=== PATIENT | male | born 1985 | race Caucasian/White ===

== ENCOUNTER → 2018-12-14 15:41 | Outpatient (CLI) | payer MEDICARE, MEDICAID, SELFPAY ==
[2018-12-14 17:33] LABS: Alanine Aminotransferase 51 IU/L (21-72); Albumin 4.6 g/dL (3.5-5.0); Albumin Globulin Ratio 1.8 (1.0-2.8); Alkaline Phosphatase 91 U/L (38-126); Aspartate Aminotransferase 43 IU/L (17-59); BUN Creatinine Ratio 16.7 (6-22); Bilirubin Total 0.7 mg/dL (0.2-1.3); Blood Urea Nitrogen 15 mg/dL (9-20); Calcium 9.9 mg/dL (8.4-10.2); Carbon Dioxide 30 mmol/L (22-32); Chloride 103 mmol/L (98-107); Cholesterol 182 mg/dL (140-199); Estimated Glomerular Filt Rate > 60.0 mL/min (>60); Globulin 2.6 g/dL (1.7-4.1); Glucose 99 mg/dL (70-100); HDL Cholesterol 45 mg/dL (40-60); HEMOLYSIS < 15 (0-50); LDL Cholesterol Calculated 116 mg/dL (<100); Potassium 4.5 mmol/L (3.4-5.1); Sodium 141 mmol/L (137-145); Total Protein 7.2 g/dL (6.3-8.2); Triglycerides 106 mg/dL (35-150)
[2018-12-14 17:47] LABS: Vitamin D 25 Hydroxy (D3) 14.8 ng/mL (30.0-100.0)
== END ==
PROVIDERS: PCP Student in an Organized Health Care Education/Training Program; Visit Provider Student in an Organized Health Care Education/Training Program
DX: Z13.220 Encounter for screening for lipoid disorders (principal); Z79.899 Other long term (current) drug therapy; E55.9 Vitamin D deficiency, unspecified
CPT/HCPCS: 36415; 80053; 80061; 82306

== ENCOUNTER 2021-08-18 06:54 | Emergency (ER) | payer MEDICARE, MEDICAID, SELFPAY ==
[2021-08-18 07:04] VITALS: BP 148/88; PULSE 113; RESP 17; TEMP 37.2; O2SAT 97; BMI 22.8
[2021-08-18 07:26] LABS: Bacteria Urine None Seen; Culture Indicated Urine Cult Not Indicated; Mucus Urine 1+ (Negative); RBC Urine None Seen (0-5/HPF); Squamous Epithelial Cell Urine 0-1 /HPF (0-5/HPF); WBC Urine 0-1/HPF (0-5/HPF)
--- NOTE | 2021-08-18 07:39 | ED_ITS ---
HPI - Male Genitourinary General Chief complaint: Urogenital-Male Stated complaint: Back pain Time Seen by Provider: 08/18/21 07:39 Source: patient and family Mode of arrival: Ambulatory Limitations: no limitations History of Present Illness HPI Narrative: This is a 36-year-old male with history of autism and major depressive disorder. Patient has had right lower back pain which she describes as being quite unco mfortable, does not radiate down his leg, does not radiate to the anterior. Patient has had some muscle spasm movement pressing on the area seems to make it worse. He denies any numbness or tingling in his extremities. No fevers or chills. No chest pain or shortness of breath. No nausea or vomiting. No bowel or bladder incontinence. Patient denies any saddle anesthesia. No weakness in his extremities. Patient has tried Aleve or Excedrin without much change. His last dose was yesterday. He denies any prior surgeries besides root canal. No known drug allergies. Occasional cigar, alcohol, no illicit. His primary care is Dr. Arroyo. Related Data Home Medications Medication Instructions Recorded Confirmed clonazepam 0.5 mg tablet 0.5 mg PO DAILY 12/14/18 12/14/18 mirtazapine 45 mg tablet 90 mg PO DAILY tab 12/14/18 12/14/18 risperidone 3 mg tablet 3 mg PO DAILY 12/14/18 12/14/18 Previous Rx's Medication Instructions Recorded cyclobenzaprine 10 mg tablet 10 mg PO Q8H PRN #10 tab 08/18/21 Allergies Allergy/AdvReac Type Severity Reaction Status Date / Time sertraline AdvReac Mild severe Verified 08/18/21 08:01 stomach cramping Review of Systems Review of Systems ROS Unobtainable: All systems reviewed & are unremarkable except as noted in HPI and below Patient History Medical History Allergies (~2009) Broken arm (~1996) History of chicken pox History of head injury (~1996) Hypersensitivity (~1996) Undescended testes (~1989) Surgical History Hx of tonsillectomy (~1986) Family History Father Diabetes mellitus Hypertension Mother No problems noted. Grandfather Diabetes mellitus Hypertension Heart abnormality Grandmother Hypertension Heart abnormality Grandfather Diabetes mellitus Grandmother Cancer Social History marital status: unmarried,single household members: family pets and animals: No education level: high school occupational status: employed [employer]oxy: [employer] travel history: other leisure activities: reading and other other: Travel, Watching Television seatbelt use: always helmet use: Yes working smoke detector in home: Yes carbon monox detector in home: Yes firearms in home: No do you feel safe at home: Yes Smoking Status: Never smoker alcohol intake: current substance use type: does not use during the past year weight has: remained stable well-balanced diet: daily or most days daily servings fruits/ve-1 caffeine: Yes (2+ drinks per day, 2 + drinks of soda/pop per day) eating out: 1-3 times/week additional social history: Travel history: [facility], [place], [place], [place]. DISABILITIES: Vision deficiencies, Autism/Brain injury. Smoking Status: Never smoker alcohol intake frequency: 0-2 drinks per day Substance Use Type: does not use Exam Narrative Exam Narrative: GENERAL: Alert and oriented x three, male in mild distress. HEENT: Head normocephalic, atraumatic, EOMI, pupils reactive, face symmetric, moist mucous membranes NECK: Supple, full range of motion CARDIOVASCULAR: Regular rate and rhythm without murmurs, rubs or gallops. RESPIRATORY: Breath sounds equal bilaterally, no wheezes rales or rhonchi. ABDOMEN: Soft, nontender. Normoactive bowel sounds all 4 quadrants. No guarding or rebound, rigidity, no mass : No CVA tenderness BACK: No cervical, thoracic or lumbar vertebral point tenderness. Patient has normal range of motion. Patient's gait is normal. Muscle strength is 5/5 in lower extremities, DTRs are 2/4 and lower extremities. Sensation is intact in the lower extremities. EXTREMITIES: Normal range of motion, no clubbing or edema. Neurovascularly intact NEUROLOGICAL: Cranial nerves II through XII grossly intact. Moving all extremities SKIN: Warm, dry, no petechiae, no rashes or lesions. Initial Vital Signs Initial Vital Signs: Vital Signs Temperature 98.9 F 08/18/21 07:04 Pulse Rate 113 H 08/18/21 07:04 Respiratory Rate 17 08/18/21 07:04 Blood Pressure 148/88 H 08/18/21 07:04 Pulse Oximetry 97 08/18/21 07:04 Course Orders Ordered: ED Orders 08/18/21 07:05 Urine Culture Stat Urine Microscopic Stat Discontinued Medications Ketorolac Tromethamine (Ketorolac 30 Mg/Ml Vial) 30 mg IM NOW ONE Stop: 08/18/21 07:59 Last Admin: 08/18/21 08:10 Dose: 30 mg Documented by: Vital Signs Vital signs: Vital Signs - 8 hr 08/18/21 07:04 Temperature 98.9 F Pulse Rate 113 H Respiratory Rate 17 Blood Pressure 148/88 H Pulse Oximetry 97 MDM - Male Genitourinary Lab Data Labs: Lab Results 08/18/21 Range/Units 07:05 Urine RBC None seen (0-5/HPF) Urine WBC 0-1/hpf (0-5/HPF) Ur Squamous Epith Cells 0-1 /hpf (0-5/HPF) Urine Bacteria None seen (None) Urine Mucus 1+ H (Negative) Ur Culture Indicated? Cult not indicated Urine Dip Bedside Urine Glucose 500 mg/dl Bedside Urine Bilirubin - Negative Bedside Urine Ketone - Negative Urine Specific [place] 1.030 Bedside Urine Occult Blood - Negative Bedside Urine pH 6 Bedside Urine Protein +/- 15 Bedside Urine Urobilinogen - Negative Bedside Urine Nitrite - Negative Bedside Urine Leukocytes - Negative Esterase [facility] Narrative Medical decision making narrative: This is a 36-year-old male with complaint of right back pain. Patient has symptoms more consistent with musculoskeletal changes. Exam is benign and reassuring. Patient's urine does not show any signs of blood or kidney stone or infection. Patient does not have other symptoms that make me suspect an acute intra-abdominal process. Plan for NSAIDs/Tylenol, as needed muscle relaxer and follow up with primary care with return precautions discussed with patient and mother at bedside. Discharge Plan Departure Patient Disposition: Home Clinical Impression: Right-sided back pain Instructions: DI for Low Back Pain Activity Restrictions/Additional Instructions: Follow-up up with your physician if your symptoms are not improving in the next week. You may take ibuprofen up to 600 mg every 6 hours needed for pain. You may also take Tylenol up to a 1000 mg every 6 hours as needed. You may take Flexeril 1 tablet every 8 hours as needed for muscle spasm. This medication can make some individual sleepy. Prescription sent to [facility] in [place] Please return for rapidly worsening symptoms, new weakness, numbness, loss of bowel or bladder control, inability ambulate or walk new worsening pain or other new or concerning symptoms. Prescriptions: New cyclobenzaprine 10 mg tablet 10 mg PO Q8H PRN (Reason: muscle spasm) Qty: 10 0RF No Action mirtazapine 45 mg tablet 90 mg PO DAILY 0RF risperidone 3 mg tablet 3 mg PO DAILY 0RF clonazepam 0.5 mg tablet 0.5 mg PO DAILY 0RF Referrals: Bruno Arroyo MD [Primary Care Provider] -
[2021-08-18] MEDS: KETOROLAC 30 MG/ML VIAL IM (08:10)
== END 2021-08-18 08:27 | disposition home or self-care (01) ==
PROVIDERS: Emergency Medicine; Emergency Provider Emergency Medicine; PCP Student in an Organized Health Care Education/Training Program
DX: M54.50 Low back pain, unspecified (principal)
CPT/HCPCS: 81003; 81015; 87086; 96372; 99283; J1885

== ENCOUNTER → 2022-04-21 13:21 | Outpatient (CLI) | payer MEDICARE, MEDICAID, SELFPAY ==
[2022-04-21 13:49] LABS: Add Manual Diff / Slide Review NO; Basophils Absolute Auto 0 /uL (0-100); Basophils Percent Auto 0.2 % (0-2); Eosinophils Absolute Auto 200 /uL (0-450); Eosinophils Percent Auto 4.6 % (2-4); Hematocrit 42.9 % (41-53); Hemoglobin 14.8 g/dL (13.5-17.5); Lymphocytes Absolute Auto 1600 /uL (1100-4500); Lymphocytes Percent Auto 32.9 % (25-40); Mean Corpuscular HGB Conc 34.6 % (30-36); Monocytes Absolute Auto 300 /uL (0-900); Monocytes Percent Auto 6.6 % (3-14); Neutrophils Absolute Auto 2800 /uL (1500-7000); Neutrophils Percent Auto 55.7 % (50-75); Platelet Count 217 X10^3/uL (150-400); Red Cell Distribution Width 13.1 % (11.6-14.8)
[2022-04-21 13:56] LABS: Hemoglobin A1C% w Est Avg Glu 5.5 % (4.0-6.0)
[2022-04-21 14:05] LABS: Alanine Aminotransferase 49 IU/L (<50); Albumin 4.7 g/dL (3.5-5.0); Albumin Globulin Ratio 1.7 (1.0-2.8); Alkaline Phosphatase 75 U/L (38-126); Aspartate Aminotransferase 35 IU/L (17-59); BUN Creatinine Ratio 15.1 (6-22); Bilirubin Total 1.1 mg/dL (0.2-1.3); Blood Urea Nitrogen 14 mg/dL (9-20); Calcium 9.6 mg/dL (8.4-10.2); Carbon Dioxide 32 mmol/L (22-32); Chloride 99 mmol/L (98-107); Cholesterol 197 mg/dL (140-199); Estimated Glomerular Filt Rate > 60 mL/min (>60); Globulin 2.8 g/dL (1.7-4.1); Glucose 105 mg/dL (70-100); HDL Cholesterol 42 mg/dL (40-60); HEMOLYSIS < 15 (0-50); LDL Cholesterol Calculated 118 mg/dL (<100); Potassium 3.7 mmol/L (3.4-5.1); Sodium 141 mmol/L (137-145); Total Protein 7.5 g/dL (6.3-8.2); Triglycerides 185 mg/dL (35-150)
== END ==
PROVIDERS: PCP Family Medicine; Referring Provider Family Medicine; Visit Provider Family Medicine
DX: F84.0 Autistic disorder (principal); Z79.899 Other long term (current) drug therapy; H61.20 Impacted cerumen, unspecified ear; R03.0 Elevated blood-pressure reading, without diagnosis of hypertension; R42 Dizziness and giddiness; Z13.1 Encounter for screening for diabetes mellitus; Z13.220 Encounter for screening for lipoid disorders
CPT/HCPCS: 36415; 80053; 80061; 83036; 85025

== ENCOUNTER 2023-10-12 17:20 | Emergency (ER) | payer MEDICARE, MEDICAID, SELFPAY ==
[2023-10-12] VITALS (11 sets, daily range): BP systolic 113–136; BP diastolic 76–89; PULSE 73–90; RESP 17–20; TEMP 36.9; O2SAT 96–98; BMI 23.5
--- NOTE | 2023-10-12 23:38 | ED_ITS ---
HPI - Neuro Symptoms/Deficit General Chief Complaint: Neuro Symptoms/Deficit Stated Complaint: facial swelling and numbness including eye Time Seen by Provider: 10/12/23 23:14 Source: patient Mode of arrival: Ambulatory History of Present Illness HPI Narrative: 38-year-old with history of autism, noted to have tingling sensation right face since yesterday, this morning a swelling sensation, and drool from the right side of his mouth, also not blinking as well the right eye. No eye injury or redness. No history of previous strokes, no history of previous Willingham's palsy. Here with mother for evaluation. No injury or trauma. No weakness or numbness to arms or legs, nor to the left leonid-face. No visual field defects, no diplopia, no trouble swallowing. No change in voice. Feels like it is hard to blink with his right eye, but able to close his right eye, no right eye redness or discharge. No history of stroke or clotting problems, no symptoms like this before. On Anticoagulants: No Related Data Home Medications Medication Instructions Recorded Confirmed clonazepam 0.5 mg tablet 0.5 mg PO DAILY 12/14/18 04/21/22 mirtazapine 45 mg tablet 90 mg PO DAILY 12/14/18 04/21/22 risperidone 3 mg tablet 3 mg PO DAILY 12/14/18 04/21/22 Previous Rx's Medication Instructions Recorded valacyclovir 1 gram tablet 1,000 mg PO TID 10 days #30 tabs 10/12/23 (Valtrex) prednisone 20 mg tablet 60 mg (3 x 20 mg) PO DAILY 7 days 10/13/23 #21 tabs Allergies Allergy/AdvReac Type Severity Reaction Status Date / Time sertraline AdvReac Mild severe Verified 04/21/22 12:53 stomach cramping Review of Systems Review of Systems Narrative: per HPI Hematologic/Lymphatic On Anticoagulants: No Patient History Medical History (Updated 10/13/23 @ 00:01 by Arthur Biggs MD) Double vision Chronic back pain Anxiety Joint pain Skin rash (~2021) Undescended testes (~1989) Broken arm (~1996) Hypersensitivity (~1996) Allergies (~2009) History of chicken pox History of head injury (~1996) Surgical History (Updated 05/05/22 @ 19:35 by Taty Torres) Anesthesia Hx of tonsillectomy (~1986) Family History (Updated 05/05/22 @ 19:38 by Taty Torres) Father Diabetes mellitus Hypertension Mother No problems noted. Grandfather Diabetes mellitus Hypertension Heart abnormality Grandmother Hypertension Heart abnormality Grandfather Diabetes mellitus Grandmother Cancer Hypertension Social History marital status: unmarried,single household members: family pets and animals: No education level: high school occupational status: employed [employer]: [employer] travel history: other leisure activities: reading and other other: Travel, Watching Television seatbelt use: always helmet use: Yes working smoke detector in home: Yes carbon monox detector in home: Yes firearms in home: No do you feel safe at home: Yes Smoking Status: Never smoker alcohol intake: current substance use type: does not use during the past year weight has: remained stable well-balanced diet: daily or most days daily servings fruits/ve-1 caffeine: Yes (2+ drinks per day, 2 + drinks of soda/pop per day) eating out: 1-3 times/week additional social history: Travel history: [facility], [place], [place], [place]. DISABILITIES: Vision deficiencies, Autism/Brain injury. Smoking Status: Never smoker alcohol intake frequency: 0-2 drinks per day Substance Use Type: does not use Exam Narrative Exam Narrative: GENERAL: Well-developed patient, in mild distress. HEAD: Atraumatic. Normocephalic. EYES: Pupils equal round and reactive. Extraocular motions intact. No scleral icterus. No injection or drainage. ENT: Nose without bleeding, purulent drainage. Throat without erythema, tonsillar hypertrophy or exudate. Airway patent. NECK: Trachea midline. Non tender CARDIOVASCULAR: Regular rate and rhythm without murmurs, gallops, or rubs. RESPIRATORY: Clear to auscultation. Breath sounds equal bilaterally. No wheezes, rales, or rhonchi. GASTROINTESTINAL: Abdomen soft, non-tender, nondistended. EXTREMITIES: No edema or joint tenderness. BACK: Nontender without deformity or crepitance. No flank tenderness. NEURO: AOx3. Motor 5/5 upper extremities bilateral, motor 5/5 lower extremities bilateral. Patient does have right-sided facial droop that is more prominent when he is actively trying to smile on request, at rest seems less prominent, at rest he seems to be able to close his right eye but there is definitely a lag compared to right rapid blinking on the left-hand side. He does have some weakness to his right upper forehead as well. 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 SKIN: No rash or erythema of visible areas Initial Vital Signs Initial Vital Signs: Vital Signs Temperature 98.4 F 10/12/23 17:35 Pulse Rate 90 10/12/23 17:35 Respiratory Rate 18 10/12/23 17:35 Blood Pressure 117/76 10/12/23 17:35 Pulse Oximetry 97 10/12/23 17:35 Oxygen Delivery Method Room Air 10/12/23 17:35 Course Orders Ordered: Discontinued Medications Artificial Tears (Mineral Oil/Petrol Ophth Oint 3.5 Gm) 1 applic EYE-RIGHT BEDTIME PRN PRN Reason: Dry Eye(s) Last Admin: 10/13/23 00:21 Dose: 1 applic Documented By: PARUL Prednisone (Prednisone 20 Mg Tablet) 60 mg PO NOW ONE Stop: 10/12/23 23:58 Last Admin: 10/13/23 00:21 Dose: 60 mg Documented By: PARUL Valacyclovir HCl (Valacyclovir 500 Mg Tablet) 1,000 mg PO NOW ONE Stop: 10/12/23 23:57 Last Admin: 10/13/23 00:21 Dose: 1,000 mg Documented By: PARUL Vital Signs Vital signs: Vital Signs - 8 hr 10/12/23 17:35 10/12/23 19:12 10/12/23 19:12 Temperature 98.4 F Pulse Rate 90 80 Respiratory Rate 18 Blood Pressure 117/76 121/78 Pulse Oximetry 97 98 Oxygen Delivery Method Room Air Room Air 10/12/23 19:30 10/12/23 19:30 10/12/23 20:00 Temperature Pulse Rate 85 Respiratory Rate Blood Pressure 116/82 124/82 Pulse Oximetry 98 Oxygen Delivery Method Room Air 10/12/23 20:00 10/12/23 20:30 10/12/23 20:30 Temperature Pulse Rate 79 74 Respiratory Rate 18 Blood Pressure 113/83 Pulse Oximetry 97 97 Oxygen Delivery Method 10/12/23 21:00 10/12/23 21:00 10/12/23 21:30 Temperature Pulse Rate 74 Respiratory Rate Blood Pressure 121/83 121/84 Pulse Oximetry 98 Oxygen Delivery Method 10/12/23 21:30 10/12/23 22:00 10/12/23 22:00 Temperature Pulse Rate 75 76 Respiratory Rate 20 Blood Pressure 124/82 Pulse Oximetry 97 97 Oxygen Delivery Method Room Air Room Air MDM - Neuro Symptoms/Deficit MDM Narrative Medical decision making narrative: Autistic adult male with right facial droop and right forehead weakness recent right drool, symptoms and exam consistent with right [place] Palsy, symptoms about 24 hours durations, doubt stroke. Discussed anitviral and steroid treatments that might be helpful, they were amenable. First doses oral Valtrex and Prednisone given, Rx sent for further doses to his pharmacy. We discussed use of over-counter Lacrilube during sleep to prevent drying of the right eye if he might incompletely shut eye during sleep, and artifical tears use during awake daytime hours. Folllow-up local ENT advised, clinic contact information provided. Home with mother. 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 Symptoms are early in the course, just the 2nd day or earlier. Trial of oral prednisone steroid. Trial of antiviral Valtrex/Valacyclovir oral medications. The right eye may not closed during sleep all the way, use [id number] Lacri-Lube moisturizer for sleep, and then aqueous drops every 1 hour or so during daylight hours. Follow up with Otolaryngology ear nose throat specialist next days, contact information for local avionics systems repairer Dr. Borrero office information. Call their office later today during open hours. Return to this/nearest emergency department for any change worsening symptoms or any concerns prior Prescriptions: New valacyclovir [Valtrex] 1 gram tablet 1,000 mg PO TID 10 Days Qty: 30 0RF prednisone 20 mg tablet 60 mg PO DAILY 7 Days Qty: 21 0RF No Action mirtazapine 45 mg tablet 90 mg PO DAILY risperidone 3 mg tablet 3 mg PO DAILY clonazepam 0.5 mg tablet 0.5 mg PO DAILY Referrals: Florentin Borrero MD [Physician] - Gian Bose DO [Primary Care Provider] - Stand Alone Forms: Patient Portal/API
[2023-10-13] VITALS: BP 129/87; PULSE 79; RESP 18; O2SAT 96
[2023-10-13] MEDS: MINERAL OIL/PETROL OPHTH OINT 3.5 GM 1 APPLIC EYE-RIGHT (00:21)
[2023-10-13] MEDS: valACYclovir 500 MG TABLET 1000 MG PO (00:21)
[2023-10-13] MEDS: predniSONE 20 MG TABLET 60 MG PO (00:21)
[2023-10-13 00:30] VITALS: BP 123/86; PULSE 81; RESP 17; O2SAT 95
== END 2023-10-13 01:08 | disposition home or self-care (01) ==
PROVIDERS: Emergency Provider Emergency Medicine; PCP Family Medicine
DX: G51.0 Bell's palsy (principal)
CPT/HCPCS: 99283

== ENCOUNTER → 2023-10-29 10:37 | Outpatient (CLI) | payer MEDICARE, MEDICAID, SELFPAY ==
[2023-10-29 11:42] LABS: Add Manual Diff / Slide Review NO; Basophils Absolute Auto 0 /uL (0-100); Basophils Percent Auto 0.2 % (0-2); Eosinophils Absolute Auto 200 /uL (0-450); Eosinophils Percent Auto 4.1 % (2-4); Hematocrit 40.6 % (41-53); Hemoglobin 14.1 g/dL (13.5-17.5); Lymphocytes Absolute Auto 1800 /uL (1100-4500); Mean Corpuscular HGB Conc 34.7 % (30-36); Mean Corpuscular Hemoglobin 28.5 PG (26-34); Mean Corpuscular Volume 82.1 fL (80-100); Monocytes Absolute Auto 400 /uL (0-900); Monocytes Percent Auto 7.2 % (3-14); Neutrophils Absolute Auto 3000 /uL (1500-7000); Neutrophils Percent Auto 54.5 % (50-75); Platelet Count 166 X10^3/uL (150-400); Red Blood Cell Count 4.94 X10^6/uL (4.5-5.9); Red Cell Distribution Width 13.6 % (11.6-14.8); White Blood Cell Count 5.4 X10^3/uL (4.5-11.0)
[2023-10-29 11:57] LABS: Alanine Aminotransferase 54 IU/L (<50); Albumin 4.5 g/dL (3.5-5.0); Albumin Globulin Ratio 1.8 (1.0-2.8); Alkaline Phosphatase 79 U/L (38-126); Aspartate Aminotransferase 30 IU/L (17-59); Bilirubin Total 0.8 mg/dL (0.2-1.3); Blood Urea Nitrogen 15 mg/dL (9-20); Calcium 9.8 mg/dL (8.4-10.2); Carbon Dioxide 27 mmol/L (22-32); Chloride 105 mmol/L (98-107); Cholesterol 233 mg/dL (140-199); Estimated Glomerular Filt Rate > 60 mL/min (>60); Globulin 2.5 g/dL (1.7-4.1); Glucose 120 mg/dL (70-100); HDL Cholesterol 51 mg/dL (40-60); HEMOLYSIS < 15 (0-50); LDL Cholesterol Calculated 155 mg/dL (<100); Potassium 3.8 mmol/L (3.4-5.1); Sodium 141 mmol/L (137-145); Triglycerides 136 mg/dL (35-150)
[2023-10-29 14:42] LABS: Vitamin D 25 Hydroxy (D3) < 12.8 ng/mL (30.0-100.0)
[2023-10-29 15:02] LABS: HIV 1 & 2 Ab/Ag 4th Gen Combo NEGATIVE (NEGATIVE); Hep C Virus Ab w/Reflex Quant NEGATIVE s/c (NEGATIVE)
[2023-11-01 21:35] LABS: 18 kD IgG Band Absent (.); 23 kD IgG Band Absent (.); 28 kD IgG Band Absent (.); 30 kD IgG Band Absent (.); 39 kD IgG Band Absent (.); 41 kD IgG Bands Absent (.); 45 kD IgG Band Absent (.); 58 kD IgG Band Absent (.); 66 kD IgG Band Absent (.); IgG P93 AB Absent (.); IgM P23 AB Absent (.); IgM P39 AB Absent (.); IgM P41 AB Absent (.); Lyme IgG Line Blot Interpretat Negative (.); Lyme IgM Line Blot Interpretat Negative (.)
== END ==
PROVIDERS: PCP Family Medicine; Referring Provider Family Medicine; Visit Provider Family Medicine
DX: E55.9 Vitamin D deficiency, unspecified (principal); F84.0 Autistic disorder; G51.0 Bell's palsy
CPT/HCPCS: 36415; 80053; 80061; 82306; 85025; 86617; 86803; 87389

== ENCOUNTER → 2024-11-28 15:21 | Outpatient (CLI) | payer MEDICARE, MEDICAID, SELFPAY ==
[2024-11-28 16:54] LABS: Alanine Aminotransferase 47 IU/L (<50); Albumin 4.7 g/dL (3.5-5.0); Albumin Globulin Ratio 2.1 (1.0-2.8); Alkaline Phosphatase 70 U/L (38-126); Blood Urea Nitrogen 12 mg/dL (9-20); Calcium 9.8 mg/dL (8.4-10.2); Carbon Dioxide 28 mmol/L (22-32); Chloride 104 mmol/L (98-107); Cholesterol 180 mg/dL (140-199); Estimated Glomerular Filt Rate > 60 mL/min (>60); Globulin 2.2 g/dL (1.7-4.1); Glucose 117 mg/dL (70-99); HDL Cholesterol 44 mg/dL (40-60); HEMOLYSIS < 15 (0-50); Potassium 3.9 mmol/L (3.4-5.1); Sodium 141 mmol/L (137-145); Total Protein 6.9 g/dL (6.3-8.2); Triglycerides 266 mg/dL (35-150)
[2024-11-28 17:10] LABS: Vitamin D 25 Hydroxy (D3) 36.7 ng/mL (30.0-100.0)
[2024-11-28 17:35] LABS: Hemoglobin A1C% w Est Avg Glu 5.5 % (4.0-6.0)
== END ==
PROVIDERS: PCP Family Medicine; Referring Provider Family Medicine; Visit Provider Family Medicine
DX: R73.9 Hyperglycemia, unspecified (principal); E78.2 Mixed hyperlipidemia; E55.9 Vitamin D deficiency, unspecified; F84.0 Autistic disorder
CPT/HCPCS: 36415; 80053; 80061; 82306; 83036